=== PATIENT | male | born 1990 | race American Indian/Alaskan Native ===

== ENCOUNTER 2018-04-19 22:01 | Emergency (ER) | payer SELFPAY ==
[2018-04-19] MEDS ORDERED: NACL 0.9% 1000 ML 1,000 ML IV ONE (22:18)
[2018-04-19] MEDS ORDERED: ZOFRAN ONE (22:42)
[2018-04-19 22:56] LABS: Hematocrit 46.8 % (35.5-45.6); Hemoglobin 15.3 gm/dl (11.8-15.2); Mean Corpuscular HGB Conc 33 % (32-34); Mean Corpuscular Hemoglobin 31 pg (28-32); Mean Corpuscular Volume 95 fl (84-94); Platelet Count 284 K/mm3 (140-440); Red Blood Count 4.95 M/mm3 (3.65-5.03)
[2018-04-19] MEDS ORDERED: ZOFRAN IV ONE ×2 (22:57→23:38)
[2018-04-19 23:29] LABS: Alanine Aminotransferase 15 units/L (7-56); Albumin 5.1 g/dL (3.9-5); BUN/Creatinine Ratio 14; Blood Urea Nitrogen 13 mg/dL (9-20); Calcium 10.1 mg/dL (8.4-10.2); Hemolysis Index 13; Lipase 12 units/L (13-60)
[2018-04-19] MEDS ORDERED: MORPHINE IV ONE (23:38)
--- NOTE | 2018-04-19 23:47 | Emergency Department Report ---
HPI - General Chief Complaint: Abdominal Pain Time Seen by Provider: 04/19/18 23:01 - HPI HPI: 27-year-old male presents to the emergency department via EMS from home with complaint of some nausea and vomiting and then developing some generalized chest pain. He denies any shortness of breath, fever. He also has developed some upper abdominal discomfort from the vomiting. He did not take anything for her symptoms prior to presentation. He occasionally will smoke marijuana but denies any tobacco or any other illicit drug use. No recent travel or sick contacts at home. There are no known aggravating or alleviating factors. ED Past Medical Hx - Past Medical History Hx GERD: Yes - Surgical History Past Surgical History?: No - Social History Smoking Status: Current Every Day Smoker Substance Use Type: None, Marijuana - Medications Home Medications: Home Medications Medication Instructions Recorded Confirmed Last Taken Type Ondansetron [Zofran Odt] 4 mg PO Q8H PRN #10 tab.rapdis 04/20/18 Unknown Rx ED Review of Systems ROS: Stated complaint: STOMACH PAIN/VOMITING ALL DAY Other details as noted in HPI Comment: All other systems reviewed and negative Constitutional: denies: chills, fever Eyes: denies: eye pain, eye discharge, vision change ENT: denies: ear pain, throat pain Respiratory: denies: cough, shortness of breath, wheezing Cardiovascular: chest pain. denies: palpitations Gastrointestinal: abdominal pain, nausea, vomiting Genitourinary: denies: urgency, dysuria Musculoskeletal: denies: back pain, joint swelling, arthralgia Skin: denies: rash, lesions Neurological: denies: headache, weakness, paresthesias Physical Exam - Physical Exam Vital Signs: Vital Signs 04/19/18 22:14 Temperature 98.3 F Pulse Rate 68 Respiratory 20 Rate Blood Pressure 141/107 O2 Sat by Pulse 100 Oximetry ED Course Vital Signs 04/19/18 22:14 Temperature 98.3 F Pulse Rate 68 Respiratory 20 Rate Blood Pressure 141/107 O2 Sat by Pulse 100 Oximetry ED Medical Decision Making - Lab Data Result diagrams: 04/19/18 22:22 04/19/18 22:22 - EKG Data -: EKG Interpreted by Me EKG shows normal: sinus rhythm (PVCs), axis, intervals, QRS complexes, ST-T waves (early repolarization) Rate: bradycardia (58 bpm) - EKG Data When compared to previous EKG there are: previous EKG unavailable Interpretation: other (sinus rhythm with PVCs, early repolarization) Critical care attestation.: If time is entered above; I have spent that time in minutes in the direct care of this critically ill patient, excluding procedure time. ED Disposition Clinical Impression: Dehydration Chest pain Qualifiers: Chest pain type: unspecified Qualified Code(s): R07.9 - Chest pain, unspecified Abdominal pain Qualifiers: Abdominal location: epigastric Qualified Code(s): R10.13 - Epigastric pain Nausea and vomiting Qualifiers: Vomiting type: unspecified Vomiting Intractability: non-intractable Qualified Code(s): R11.2 - Nausea with vomiting, unspecified Disposition: TO HOME OR SELFCARE Is pt being admited?: No Condition: Stable Instructions: Chest Pain (ED), Abdominal Pain (ED), Acute Nausea and Vomiting ( ED), Dehydration (ED) Additional Instructions: Please follow up with a primary care physician in the next few days. Increase your oral rehydration. Return to the emergency Department with any worsening of your symptoms, inability to stay hydrated due to intractable vomiting, or with any acute distress. Prescriptions: Ondansetron [Zofran Odt] 4 mg PO Q8H PRN #10 tab.rapdis PRN Reason: Nausea Referrals: PRIMARY CARE, [Primary Care Provider] - 2-3 Days LISA PALACIO MD [Staff Physician] - 2-3 Days BRAULIO REYES MD [Staff Physician] - 2-3 Days [facility] [Outside] - 2-3 Days Time of Disposition: 05:54
--- NOTE | 2018-04-20 00:44 | XRay Report ---
FINAL REPORT PROCEDURE: XR ABD SERIES W CXR 1V TECHNIQUE: Abdominal series complete, including supine and upright AP views of the abdomen and frontal chest. HISTORY: CP, abd pain COMPARISON: No prior studies are available for comparison. FINDINGS: Heart: Normal. Mediastinum/Vessels: Normal. Lungs/Pleural space: Normal. Bowel gas pattern: Nonobstructive. Masses or calcifications: None. Bony structures: No acute osseous abnormality. Other: No free intraperitoneal air. IMPRESSION: No acute abnormality.
[2018-04-20] MEDS ORDERED: MORPHINE ONE (01:59)
[2018-04-20] MEDS ORDERED: ZOFRAN ONE (01:59)
[2018-04-20 02:23] LABS: Band Neutrophils # (Manual) 0.4 K/mm3; Basophils % (Manual) 0 % (0.0-1.8); Eosinophils % (Manual) 0 % (0.0-4.3); RBC Morphology Normal; Total Cells Counted 100
--- NOTE | 2018-04-20 03:23 | Ultrasound Report ---
FINAL REPORT PROCEDURE: US ABDOMEN LIMITED TECHNIQUE: Real-time sonography was performed of the gallbladder with image documentation. CPT 85063 HISTORY: upper abd pain COMPARISON: No prior studies are available for comparison. FINDINGS: The gallbladder is normal. The gallbladder wall thickness is 1 millimeter. The common bile duct measures 2 millimeters. The portions of the liver and pancreas imaged are normal.. IMPRESSION: Normal Examination
[2018-04-20] MEDS ORDERED: REGLAN IV ONE (03:45)
[2018-04-20 05:31] LABS: Bilirubin,Urine NEG (Negative); Blood,Urine NEG (Negative); Color,Urine Yellow (Yellow); Mucus,Urine 3+ /HPF; Urobilinogen,Urine < 2.0 mg/dL (<2.0)
[2018-04-20 07:07] VITALS: BP 138/73
== END 2018-04-20 06:25 | disposition home or self-care (01) ==
LOC: ED 22:01
DX: E86.0 Dehydration (principal); R10.13 Epigastric pain; R11.2 Nausea with vomiting, unspecified; R07.89 Other chest pain; K21.9 Gastro-esophageal reflux disease without esophagitis; F17.200 Nicotine dependence, unspecified, uncomplicated
CPT/HCPCS: 36415; 74022; 76705; 80053; 81001; 83690; 84484; 85007; 85025; 93005; 93010; 96361; 96374; 96375; 96376; 99285; J2270; J2405; J2765; J7030